=== PATIENT | female | born 1950 | race Caucasian/White ===

== ENCOUNTER → 2025-04-27 07:43 | Outpatient (REF) | payer MEDICARE, SELFPAY | LOC: HWRAD 07:43 | PROVIDERS: ATTENDING PHYSICIAN Family Medicine Sports Medicine | DX: R32 Unspecified urinary incontinence (principal); N93.9 Abnormal uterine and vaginal bleeding, unspecified | CPT/HCPCS: 76770; 76830; 76856 ==

== ENCOUNTER → 2025-05-21 14:52 | Outpatient (REF) | payer MEDICARE, SELFPAY | LOC: CLAB 14:52 | PROVIDERS: ATTENDING PHYSICIAN Obstetrics & Gynecology Gynecology | DX: N95.0 Postmenopausal bleeding (principal) | CPT/HCPCS: 88305; 88341; 88342; 88360 ==